=== PATIENT | male | born 1955 | race American Indian/Alaskan Native ===

== ENCOUNTER 2017-02-03 06:03 | Inpatient (IN) | payer OTHER ==
[2017-02-03] MEDS ORDERED: DUONEB *Not for PRN Use IH ONE ×2 (06:25→06:33)
[2017-02-03] MEDS ORDERED: PROVENTIL IH ONE ×2 (06:26→06:31)
[2017-02-03 07:03] LABS: Eosinophils % (Auto) 5.2 % (0.0-4.3); Hematocrit 26.2 % (35.5-45.6); Hemoglobin 8.4 gm/dl (11.8-15.2); Mean Corpuscular HGB Conc 32 % (32-34); Mean Corpuscular Hemoglobin 26 pg (28-32); Mean Corpuscular Volume 81 fl (84-94); Platelet Count 371 K/mm3 (140-440); Red Blood Count 3.22 M/mm3 (3.65-5.03); Red Cell Distribution Width 16.3 % (13.2-15.2); White Blood Count 5.7 K/mm3 (4.5-11.0)
--- NOTE | 2017-02-03 07:09 | Emergency Department Report ---
HPI - General Chief Complaint: Dyspnea/Respdistress Time Seen by Provider: 02/03/17 06:52 - HPI HPI: Room 4 The patient is a 62-year-old male presenting with a chief complaint of shortness of breath. The patient stated for one week he's had progressively worsening shortness of breath in addition to bilateral lower extremity edema. Patient with an occasional cough that is occasionally productive. Patient denies any history of fever, chest pain nausea or vomiting. The patient states he has a history of renal insufficiency and his last creatinine was in the 3s by March 2016. Location: Lungs, lower extremities Duration: One week Quality: Shortness Of breath Severity: Moderate Modifying factors: [see above] Context: [see above] Mode of transportation: [not driving] ED Past Medical Hx - Past Medical History Previous Medical History?: Yes Hx Hypertension: Yes Hx Diabetes: Yes Hx Renal Disease: Yes (renal insufficiency. Creatinine 22 March 2016) - Surgical History Past Surgical History?: No Hx Cholecystectomy: Yes - Family History Family history: no significant - Social History Smoking Status: Never Smoker Substance Use Type: None - Medications Home Medications: Home Medications Medication Instructions Recorded Confirmed Last Taken Type Labetalol HCl 300 mg PO TID 02/03/17 02/03/17 1 Day Ago History ~02/02/17 Sitagliptin Phosphate [Januvia] 50 mg PO DAILY 02/03/17 02/03/17 1 Day Ago History ~02/02/17 50mg Sodium Bicarbonate 650 mg PO TID 02/03/17 02/03/17 1 Day Ago History ~02/02/17 650 ED Review of Systems ROS: Stated complaint: RAYO Other details as noted in HPI Comment: All other systems reviewed and negative Constitutional: denies: chills, fever ENT: denies: ear pain, throat pain Respiratory: cough, shortness of breath Cardiovascular: denies: chest pain, palpitations Endocrine: no symptoms reported Gastrointestinal: denies: abdominal pain, nausea, diarrhea Genitourinary: denies: urgency, dysuria Musculoskeletal: denies: back pain, joint swelling, arthralgia Skin: denies: rash, lesions Neurological: denies: headache, weakness, paresthesias Psychiatric: denies: anxiety, depression Hematological/Lymphatic: denies: easy bleeding, easy bruising Physical Exam - Physical Exam Vital Signs: Vital Signs 02/03/17 02/03/17 06:13 06:27 Pulse Rate 111 H Respiratory 30 H 30 H Rate Blood Pressure 190/115 O2 Sat by Pulse 100 100 Oximetry Physical Exam: GENERAL: The patient is well-developed well-nourished male sitting on stretcher receiving nebulizer not appearing to be in acute distress. [] HEENT: Normocephalic. Atraumatic. Extraocular motions are intact. Patient has moist mucous membranes. NECK: Supple. No meningitic signs are noted. There is no adenopathy noted. CHEST/LUNGS: No wheezing auscultated. No crackles auscultated. Breath sounds equal bilaterally HEART/CARDIOVASCULAR: Regular. There is tachycardia. There is no gallop rub or murmur. ABDOMEN: Abdomen is soft, nontender. Patient has normal bowel sounds. There is no abdominal distention. SKIN: There is no rash. There is 2+ bilateral lower extremity pitting edema. There is no diaphoresis. NEURO: The patient is awake, alert, and oriented. The patient is cooperative. The patient has normal speech MUSCULOSKELETAL:There is no evidence of acute injury. ED Course Vital Signs 02/03/17 02/03/17 06:13 06:27 Pulse Rate 111 H Respiratory 30 H 30 H Rate Blood Pressure 190/115 O2 Sat by Pulse 100 100 Oximetry - Consultations Consultation #1: 02/03/17 07:39 Nephrology paged 02/03/17 07:[address] Fay ED Medical Decision Making - Lab Data Result diagrams: 02/03/17 06:20 02/03/17 06:20 Laboratory Tests 02/03/17 02/03/17 02/03/17 06:20 06:20 06:20 WBC 5.7 RBC 3.22 L Hgb 8.4 L Hct 26.2 L MCV 81 L MCH 26 L MCHC 32 RDW 16.3 H Plt Count 371 Lymph % (Auto) 34.1 [place] % (Auto) 8.4 H Eos % (Auto) 5.2 H Baso % (Auto) 1.0 Lymph # 1.9 [place] # 0.5 Eos # 0.3 Baso # 0.1 Seg Neutrophils % 51.3 Seg Neutrophils # 2.9 Sodium 143 Potassium 5.8 H Chloride 109.5 H Carbon Dioxide 19 L Anion Gap 20 BUN 41 H Creatinine 6.3 H Estimated GFR 11 BUN/Creatinine Ratio 7 Glucose 267 H Calcium 8.1 L Total Creatine Kinase 1113 H CK-MB (CK-2) 15.1 H CK-MB (CK-2) Rel Index 1.3 Troponin T 0.219 H* - EKG Data -: EKG Interpreted by Me EKG shows normal: sinus rhythm Rate: tachycardia (110 bpm) - EKG Data When compared to previous EKG there are: previous EKG unavailable Interpretation: nonspecific ST-T wave arsenio (ST depression infero-laterally. T wave inversions infero-laterally) - Radiology Data Radiology results: image reviewed (chest x-ray) interpreted by me: Chest x-ray-right sided pleural effusion. - Differential Diagnosis CHF, renal failure, ACS, pneumonia Critical care attestation.: If time is entered above; I have spent that time in minutes in the direct care of this critically ill patient, excluding procedure time. ED Disposition Clinical Impression: Shortness of breath, Acute renal failure, Elevated troponin, Volume overload, Rhabdomyolysis, Hyperkalemia Disposition: DC-09 OP ADMIT IP TO THIS HOSP Is pt being admited?: Yes Does the pt Need Aspirin: No Condition: Fair Referrals: LINDSAY THOMPSON MD [Primary Care Provider] - 3-5 Days Time of Disposition: 07:39 (hospitalist paged)
[2017-02-03 07:17] LABS: Calcium 8.1 mg/dL (8.4-10.2)
[2017-02-03 07:18] LABS: Chloride 109.5 mmol/L (98-107); Potassium 5.8 mmol/L (3.6-5.0)
[2017-02-03 07:27] LABS: Creatine Kinase MB 15.1 ng/mL (0.0-4.0)
[2017-02-03] MEDS ORDERED: KIONEX PO ONE (07:34)
[2017-02-03] MEDS ORDERED: D50W (25GM) Syringe IV ONE (08:00)
[2017-02-03] MEDS ORDERED: SODIUM BICARBONATE IV ONE ×2 (08:00→08:39)
[2017-02-03] MEDS ORDERED: CALCIUM GLUCONATE 1,000 MG in NACL 0.9% 100 ML IV ONE (08:30)
[2017-02-03] MEDS ORDERED: D50W (25GM) Vial 50 ML IV ONE (08:38)
--- NOTE | 2017-02-03 09:06 | Consultation ---
History of Present Illness - Reason for Consult Consult date: 02/03/17 acute renal failure, chronic renal failure, hyperkalemia, metabolic acidosis - History of Present Illness The patient is a 62-year-old AAM with medical history significant for Type 2 DM , HTN and CKD stage 4 presented to the ED with one week h/o worsening shortness of breath. He also reports having bilateral lower extremity edema, orthopnea and occasional cough. No prior similar presentation. Denies any h/o CHF or COPD. Inital BP was around 200/110. His creatinine was around 3 in March 2016 and it is 6.3 today with potassium of 5.8. Patient denies any history of fever, nausea, vomiting, diarrhea, rash, dysuria, hematuria, CP, dizziness or syncope. Patient received Kayexalate, IV Calicum, Insulin-Dextrose and Albuterol. Past History Past Medical History: diabetes, hypertension, renal failure Medications and Allergies Allergies Allergy/AdvReac Type Severity Reaction Status Date / Time No Known Allergies Allergy Unverified 02/03/17 06:27 Home Medications Medication Instructions Recorded Confirmed Last Taken Type Labetalol HCl 300 mg PO TID 02/03/17 02/03/17 1 Day Ago History ~02/02/17 Sitagliptin Phosphate [Januvia] 50 mg PO DAILY 02/03/17 02/03/17 1 Day Ago History ~02/02/17 50mg Sodium Bicarbonate 650 mg PO TID 02/03/17 02/03/17 1 Day Ago History ~02/02/17 650 Review of Systems Constitutional: no weight loss, no weight gain, no fever, no chills, no anorexia Ears, nose, mouth and throat: no epistaxis Cardiovascular: orthopnea, edema, shortness of breath, dyspnea on exertion, high blood pressure, leg edema, decreased exercise tolerance, no chest pain, no palpitations, no rapid/irregular heart beat, no syncope, no lightheadedness Respiratory: cough, cough with sputum, shortness of breath, dyspnea on exertion , no hemoptysis, no home oxygen Gastrointestinal: no abdominal pain, no nausea, no vomiting, no diarrhea, no melena, no jaundice Genitourinary Male: no dysuria, no hematuria Rectal: no bleeding Musculoskeletal: no redness of joints, no muscle weakness Integumentary: no rash, no sores, no wounds, no jaundice Neurological: no paralysis, no seizures, no syncope, no change in speech, no change in mentation, no confusion Endocrine: weight change Hematologic/Lymphatic: no easy bleeding Exam - Vital Signs Vital signs: Vital Signs Pulse Resp BP Pulse Ox 111 H 30 H 190/115 100 02/03/17 06:13 02/03/17 06:13 02/03/17 06:13 02/03/17 06:13 - General Appearance General appearance: well-developed, well-nourished, appears stated age, other ( tachypneic on talking) EENT: ATNC, PERRL, mucous membranes moist, hearing intact, vision intact Neck: Present: neck supple, trachea midline, JVD/HJR Respiratory: Rales Heart: regular, S1S2, no murmurs Gastrointestinal: Present: normoactive bowel sounds. Absent: tenderness, distended Integumentary: no rash Neurologic: no focal deficit, no asterixis, CN 3-12 intact Musculoskeletal: Present: other (1+ edema of both LEs noted) Psychiatric: mood/affect appropriate, cooperative Results - Lab Results 02/03/17 06:20 02/03/17 06:20 Most recent lab results Calcium 8.1 mg/dL (8.4-10.2) L 02/03/17 06:20 - Image Kidney/bladder ultrasound: pending Assessment and Plan 1. Acute kidney injury: SHERICE superimposed on CKD stage 4 likely in the setting of Cardio-Renal Syndrome. Urine studies and Renal US ordered. Renal prognosis is guarded. 2. Hyperkalemia: Patient received Kayexalate, Albuterol, IV Calcium and Insulin-Dextrose. IV lasix ordered. Will follow K levels. Patient would need hemodialysis if potassium level remains high. 3. Metabolic acidosis: Monitor. 4. CHF: Volume overload with elevated BNP. 5. Anemia.
--- NOTE | 2017-02-03 10:32 | XRay Report ---
PA and lateral chest: SOB. There is fluid layering along the lower left chest wall blunting the costophrenic angle. There is mild blunting at the lateral right costophrenic angle. The heart is slightly enlarged and there is mild vascular congestion. No pulmonary infiltrates identified. No prior study for comparison. Impressions: Findings of bilateral effusions probably secondary to CHF.
[2017-02-03] MEDS ORDERED: LASIX 80 MG in NACL 0.9% 50 ML IV ONE (12:00)
[2017-02-03] MEDS: NORMODYNE PO SCH ×3 (12:13→21:26)
[2017-02-03] MEDS ORDERED: TYLENOL PO PRN (12:39)
[2017-02-03] MEDS ORDERED: APRESOLINE IV PRN (12:39)
[2017-02-03] MEDS ORDERED: DULCOLAX PR PRN (12:39)
[2017-02-03] MEDS ORDERED: ZOFRAN IV PRN (12:39)
[2017-02-03] MEDS ORDERED: D50W (25GM) Syringe IV PRN (12:39)
--- NOTE | 2017-02-03 13:01 | History and Physical Report ---
History of Present Illness Date of admission: 02/03/17 07:43 Chief complaint: sob History of present illness: 62M with pmh of CKD, htn, who pw Progressive shortness of breath, orthopnea, PND and dyspnea on exertion. Along with lower extremity swelling. Patient said that his creatinine was checked in March and he was about 3, he has chronic kidney disease. 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 denies: smoking Family history: diabetes, hypertension Medications and Allergies Allergies Allergy/AdvReac Type Severity Reaction Status Date / Time No Known Allergies Allergy Unverified 02/03/17 06:27 Home Medications Medication Instructions Recorded Confirmed Last Taken Type Labetalol HCl 300 mg PO TID 02/03/17 02/03/17 1 Day Ago History ~02/02/17 Sitagliptin Phosphate [Januvia] 50 mg PO DAILY 02/03/17 02/03/17 1 Day Ago History ~02/02/17 50mg Sodium Bicarbonate 650 mg PO TID 02/03/17 02/03/17 1 Day Ago History ~02/02/17 650 Active Meds: Active Medications Acetaminophen (Tylenol) 650 mg PO Q4H PRN PRN Reason: Pain MILD(1-3)/Fever >100.5/KUMARI Bisacodyl (Dulcolax) 10 mg [place] QDAY PRN PRN Reason: Constipation unrelieved by MOM Dextrose (D50w (25gm) Syringe) 50 ml IV PRN PRN PRN Reason: Hypoglycemia Furosemide (Lasix) 40 mg IV BID@0600,1800 [facility] Hydralazine HCl (Apresoline) 10 mg IV Q4HR PRN PRN Reason: BP >160/100 Labetalol HCl (Normodyne) 300 mg PO TID [facility] Last Admin: 02/03/17 12:13 Dose: 300 mg Miscellaneous Medication (Labetalol Hcl [Labetalol Hcl]) 300 mg PO TID [facility] Ondansetron HCl (Zofran) 4 mg IV Q8H PRN PRN Reason: N/V unrelieved by Reglan Sodium Bicarbonate (Sodium Bicarbonate) 650 mg PO TID [facility] Review of Systems Constitutional: fatigue Cardiovascular: orthopnea, edema, shortness of breath, dyspnea on exertion, paroxysmal nocturnal dyspnea Respiratory: cough Exam - Constitutional Vitals: Temp Pulse Resp BP Pulse Ox 98.5 F 97 H 18 172/92 100 02/03/17 12:10 02/03/17 12:10 02/03/17 12:10 02/03/17 12:10 02/03/17 12:10 General appearance: Present: no acute distress, well-nourished - EENT Eyes: Present: PERRL ENT: hearing intact, clear oral mucosa - Neck Neck: Present: supple, normal ROM - Respiratory Respiratory effort: normal Respiratory: bilateral: rales - Cardiovascular Heart Sounds: Present: S1 & S2. Absent: rub, click - Extremities Extremities: pulses symmetrical Extremity abnormal: edema (bilateral bipedal) Peripheral Pulses: within normal limits - Abdominal General gastrointestinal: Present: soft, non-tender, non-distended, normal bowel sounds Male genitourinary: Present: normal - Integumentary Integumentary: Present: clear, warm, dry - Musculoskeletal Musculoskeletal: gait normal, strength equal bilaterally - Psychiatric Psychiatric: appropriate mood/affect, intact judgment & insight - Neurologic Neurologic: CNII-XII intact, moves all extremities Results - Labs CBC & Chem 7: 02/04/17 05:10 02/04/17 05:10 Labs: Laboratory Last Values WBC 5.7 K/mm3 (4.5-11.0) 02/03/17 06:20 RBC 3.22 M/mm3 (3.65-5.03) L 02/03/17 06:20 Hgb 8.4 gm/dl (11.8-15.2) L 02/03/17 06:20 Hct 26.2 % (35.5-45.6) L 02/03/17 06:20 MCV 81 fl (84-94) L 02/03/17 06:20 MCH 26 pg (28-32) L 02/03/17 06:20 MCHC 32 % (32-34) 02/03/17 06:20 RDW 16.3 % (13.2-15.2) H 02/03/17 06:20 Plt Count 371 K/mm3 (140-440) 02/03/17 06:20 Lymph % (Auto) 34.1 % (13.4-35.0) 02/03/17 06:20 [place] % (Auto) 8.4 % (0.0-7.3) H 02/03/17 06:20 Eos % (Auto) 5.2 % (0.0-4.3) H 02/03/17 06:20 Baso % (Auto) 1.0 % (0.0-1.8) 02/03/17 06:20 Lymph # 1.9 K/mm3 (1.2-5.4) 02/03/17 06:20 [place] # 0.5 K/mm3 (0.0-0.8) 02/03/17 06:20 Eos # 0.3 K/mm3 (0.0-0.4) 02/03/17 06:20 Baso # 0.1 K/mm3 (0.0-0.1) 02/03/17 06:20 Seg Neutrophils % 51.3 % (40.0-70.0) 02/03/17 06:20 Seg Neutrophils # 2.9 K/mm3 (1.8-7.7) 02/03/17 06:20 Sodium 143 mmol/L (137-145) 02/03/17 06:20 Potassium 5.8 mmol/L (3.6-5.0) H 02/03/17 06:20 Chloride 109.5 mmol/L (98-107) H 02/03/17 06:20 Carbon Dioxide 19 mmol/L (22-30) L 02/03/17 06:20 Anion Gap 20 mmol/L 02/03/17 06:20 BUN 41 mg/dL (9-20) H 02/03/17 06:20 Creatinine 6.3 mg/dL (0.8-1.5) H 02/03/17 06:20 Estimated GFR 11 ml/min 02/03/17 06:20 BUN/Creatinine Ratio 7 % 02/03/17 06:20 Glucose 267 mg/dL (75-100) H 02/03/17 06:20 POC Glucose 104 (70-105) 02/03/17 11:39 Calcium 8.1 mg/dL (8.4-10.2) L 02/03/17 06:20 Total Creatine Kinase 1113 units/L (55-170) H 02/03/17 06:20 CK-MB (CK-2) 15.1 ng/mL (0.0-4.0) H 02/03/17 06:20 CK-MB (CK-2) Rel Index 1.3 (0-4) 02/03/17 06:20 Troponin T 0.219 ng/mL (0.00-0.029) H* 02/03/17 06:20 NT-Pro-B Natriuret Pep 82837 pg/mL (0-900) H 02/03/17 06:20 Triglycerides 96 mg/dL (2-149) 02/03/17 06:20 Cholesterol 182 mg/dL (50-199) 02/03/17 06:20 LDL Cholesterol Direct 113 mg/dL (50-130) 02/03/17 06:20 HDL Cholesterol 50 mg/dL (40-59) 02/03/17 06:20 Cholesterol/HDL Ratio 3.64 % 02/03/17 06:20 - Imaging and Cardiology EKG: image reviewed (no acute ST changes) Chest x-ray: image reviewed (bilateral mild effusions) Assessment and Plan Assessment and plan: 62m with pmh of HTN and CKD, who presents with SOB and LE edema Fluid overload ?CHF vs renal cause concern for cardiorenal syndrome -start IV lasix -cardiology consult and echocardiogram Acute on Chronic Kidney disease -lasix -nephrology input appreciated -avoid nephrotins NIDDM type 2 -hold oral meds, SSI while in house Hyperkalemia -medically treated, will recheck levels -will need HD if it does not improve Elevated troponin -no chest pain, and not cw with acs -trend trop levels, fup cardiology recs DVT ppx -heparin sq
[2017-02-03] MEDS ORDERED: NON-FORMULARY (Labetalol Hcl [Labetalol Hcl] 300 MG) PO SCH (14:00)
--- NOTE | 2017-02-03 14:16 | Ultrasound Report ---
Renal ultrasound: Acute renal failure. Right renal length is 12.4 cm and the left 11.2 cm. The parenchyma of both kidneys is increased in echogenicity. There is a small right renal cyst but no solid mass in either kidney. There is no hydronephrosis nor calculus. Imaging of the urinary bladder is unremarkable. A small amount perinephric fluid is identified over the right kidney and there is are bilateral pleural effusions. Impression: 1. Renal findings consistent with medical renal disease. 2. Bilateral pleural effusions.
[2017-02-03] MEDS: NOVOLOG SUB-Q SCH ×2 (17:08→21:29)
[2017-02-03] MEDS: HEPARIN SUB-Q SCH ×2 (17:55→21:27)
[2017-02-03] MEDS: SODIUM BICARBONATE PO SCH ×2 (17:55→21:26)
[2017-02-03 18:37] LABS: Bilirubin,Urine NEG (Negative); Blood,Urine SM (Negative); Ketones,Urine NEG (Negative); Leukocyte Esterase,Urine NEG (Negative); Mucus,Urine FEW /HPF; Nitrite,Urine NEG (Negative); Urobilinogen,Urine < 2.0 mg/dL (<2.0)
[2017-02-03 18:38] LABS: Protein,Urine >500 mg/dL (Negative)
[2017-02-03] MEDS: LASIX IV SCH (19:27)
--- NOTE | 2017-02-03 22:15 | Consultation ---
History of Present Illness Consult date: 02/03/17 Consult reason: other (shortness of breath) History of present illness: 62M with pmh of CKD, htn, who presented to the hospital with Progressive shortness of breath, orthopnea, PND and dyspnea on exertion, and bilateral lower extremity edema. Past History Past Medical History: diabetes, hypertension, renal failure Past Surgical History: cholecystectomy Social history: no significant social history. denies: smoking Family history: diabetes, hypertension Medications and Allergies Allergies Allergy/AdvReac Type Severity Reaction Status Date / Time No Known Allergies Allergy Unverified 02/03/17 06:27 Home Medications Medication Instructions Recorded Confirmed Last Taken Type Labetalol HCl 300 mg PO TID 02/03/17 02/03/17 1 Day Ago History ~02/02/17 Sitagliptin Phosphate [Januvia] 50 mg PO DAILY 02/03/17 02/03/17 1 Day Ago History ~02/02/17 50mg Sodium Bicarbonate 650 mg PO TID 02/03/17 02/03/17 1 Day Ago History ~02/02/17 650 Active Meds: Active Medications Acetaminophen (Tylenol) 650 mg PO Q4H PRN PRN Reason: Pain MILD(1-3)/Fever >100.5/KUMARI Bisacodyl (Dulcolax) 10 mg [place] QDAY PRN PRN Reason: Constipation unrelieved by MOM Dextrose (D50w (25gm) Syringe) 50 ml IV PRN PRN PRN Reason: Hypoglycemia Furosemide (Lasix) 40 mg IV BID@0600,1800 [facility] Last Admin: 02/03/17 19:27 Dose: 40 mg Heparin Sodium (Porcine) (Heparin) 5,000 unit SUB-Q Q8HR [facility] Last Admin: 02/03/17 21:27 Dose: Not Given Hydralazine HCl (Apresoline) 10 mg IV Q4HR PRN PRN Reason: BP >160/100 Insulin Aspart (Novolog) 0 units SUB-Q ACHS [facility] PRN Reason: Protocol Last Admin: 02/03/17 21:29 Dose: Not Given Labetalol HCl (Normodyne) 300 mg PO TID [facility] Last Admin: 02/03/17 21:26 Dose: Not Given Ondansetron HCl (Zofran) 4 mg IV Q8H PRN PRN Reason: N/V unrelieved by Reglan Sodium Bicarbonate (Sodium Bicarbonate) 650 mg PO TID [facility] Last Admin: 02/03/17 21:26 Dose: Not Given Review of Systems All systems: negative (pertinent positives in HPI) Physical Examination Vital Signs Pulse Ox 100 02/03/17 06:07 General appearance: no acute distress HEENT: Positive: PERRL, EOMI Cardiac: Positive: Reg Rate and Rhythm, S1/S2 Lungs: Positive: clear to auscultation Abdomen: Positive: Soft, Active Bowel Sounds Extremities: Present: edema Results 02/04/17 05:10 02/04/17 05:10 Cardiac Enzymes 02/03/17 Range/Units 06:20 CK-MB (CK-2) 15.1 H (0.0-4.0) ng/mL Lipids 02/03/17 Range/Units 06:20 Triglycerides 96 (2-149) mg/dL Cholesterol 182 (50-199) mg/dL HDL Cholesterol 50 (40-59) mg/dL Cholesterol/HDL Ratio 3.64 % CBC 02/03/17 Range/Units 06:20 WBC 5.7 (4.5-11.0) K/mm3 RBC 3.22 L (3.65-5.03) M/mm3 Hgb 8.4 L (11.8-15.2) gm/dl Hct 26.2 L (35.5-45.6) % Plt Count 371 (140-440) K/mm3 Lymph # 1.9 (1.2-5.4) K/mm3 [place] # 0.5 (0.0-0.8) K/mm3 Eos # 0.3 (0.0-0.4) K/mm3 Baso # 0.1 (0.0-0.1) K/mm3 Comprehensive Metabolic Panel 02/03/17 02/03/17 Range/Units 06:20 13:07 Sodium 143 (137-145) mmol/L Potassium 5.8 H 4.8 (3.6-5.0) mmol/L Chloride 109.5 H (98-107) mmol/L Carbon Dioxide 19 L (22-30) mmol/L BUN 41 H (9-20) mg/dL Creatinine 6.3 H (0.8-1.5) mg/dL Glucose 267 H (75-100) mg/dL Calcium 8.1 L (8.4-10.2) mg/dL Assessment and Plan Fluid overload Acute on Chronic Kidney disease NIDDM type 2 Hyperkalemia Elevated troponin Echo shows normal EF 55-60% with grade I diastolic dysfunction volume overload secondary to renal disease elevated troponin in the setting for renal dysfucntion, though troponin elevation greater than expected Follow serial troponins - ischemic evaluation by stress test versus cath when acute issues resolved Medical therapy with BB, statin, and DAPT.
[2017-02-04] MEDS: HEPARIN SUB-Q SCH ×3 (05:18→21:13)
[2017-02-04] MEDS: LASIX IV SCH ×2 (05:18→17:43)
[2017-02-04 05:56] LABS: Basophils % (Auto) 1.1 % (0.0-1.8); Eosinophils % (Auto) 4.2 % (0.0-4.3); Hematocrit 26.8 % (35.5-45.6); Hemoglobin 8.4 gm/dl (11.8-15.2); Mean Corpuscular HGB Conc 31 % (32-34); Mean Corpuscular Volume 80 fl (84-94); Platelet Count 334 K/mm3 (140-440); Red Blood Count 3.36 M/mm3 (3.65-5.03); Red Cell Distribution Width 16.5 % (13.2-15.2); White Blood Count 5.8 K/mm3 (4.5-11.0)
[2017-02-04 05:57] LABS: Mean Corpuscular Hemoglobin 25 pg (28-32)
[2017-02-04 06:14] LABS: Albumin 2.8 g/dL (3.9-5); Bilirubin,Total 0.2 mg/dL (0.1-1.2); Calcium 8.5 mg/dL (8.4-10.2); Chloride 108.5 mmol/L (98-107); Total Protein 5.7 g/dL (6.3-8.2)
--- NOTE | 2017-02-04 07:20 | Progress Note ---
Assessment and Plan 1. Acute kidney injury: SHERICE superimposed on CKD stage 4 likely in the setting of Cardio-Renal Syndrome. Renal US is essentially normal. UA showed proteinuria. Will protein quantification. Likely diabetic nephropathy. Renal prognosis is guarded. 2. Hyperkalemia: Improved with Kayexalate, Albuterol, IV Calcium and Insulin-Dextrose. 3. Metabolic acidosis: Monitor. 4. CHF: Volume overload with elevated BNP. Continue IV Lasix. 5. Anemia. Subjective Date of service: 02/04/17 Interval history: Patient is feeling better today. Objective - Vital Signs Vital signs: Vital Signs - 12hr 02/03/17 02/03/17 02/03/17 19:29 19:59 23:33 Temperature 98.4 F 97.6 F Pulse Rate 80 83 Respiratory 14 16 Rate Blood Pressure 133/62 150/75 Blood Pressure 136/67 [Left] O2 Sat by Pulse 100 Oximetry 02/04/17 03:44 Temperature 98.6 F Pulse Rate Respiratory 16 Rate Blood Pressure 182/90 Blood Pressure [Left] O2 Sat by Pulse Oximetry - General Appearance General appearance: well-developed, well-nourished, appears stated age, other ( no distress) EENT: ATNC, PERRL, vision intact Neck: supple Respiratory: Present: Rales Cardiology: regular, S1S2, no murmurs Gastrointestinal: normoactive bowel sounds, no tenderness, no distended Integumentary: no rash, warm and dry Neurologic: no focal deficit, no asterixis, alert and oriented x3, CN 3-12 intact Musculoskeletal: other (1+ edema of both LEs) Psychiatric: mood/affect appropriate, cooperative - Lab 02/04/17 05:10 02/04/17 05:10 Most recent lab results Calcium 8.5 mg/dL (8.4-10.2) 02/04/17 05:10 Urine Creatinine 138.0 mg/dL (0.1-20.0) H 02/03/17 Unknown Urine Sodium 80 mmol/L 02/03/17 Unknown
[2017-02-04] MEDS: NOVOLOG SUB-Q SCH ×4 (07:52→22:27)
[2017-02-04] MEDS: NORMODYNE PO SCH ×3 (09:52→21:08)
[2017-02-04] MEDS: BABY ASPIRIN PO SCH (09:53)
--- NOTE | 2017-02-04 10:24 | Progress Note ---
Assessment and Plan Assessment and plan: 62m with pmh of HTN and CKD, who presents with SOB and LE edema acute diastolic HF -continue IV lasix -cardiology consult appreciated -echo shows preserved ef and diastolic Dysfunction Acute on Chronic Kidney disease -lasix -nephrology input appreciated -avoid nephrotins NIDDM type 2 -hold oral meds, SSI while in house Hyperkalemia -medically treated, and resolved Elevated troponin/Type 2 MA -no chest pain, and not cw with acs -most likely Type 2 MA DVT ppx -heparin sq History Interval history: orthopnea is improved, LE edema is improving, no chest pain Hospitalist Physical - Physical exam Narrative exam: General appearance: Present: no acute distress, well-nourished - EENT Eyes: Present: PERRL ENT: hearing intact, clear oral mucosa - Neck Neck: Present: supple, normal ROM - Respiratory Respiratory effort: normal Respiratory: bilateral: rales - Cardiovascular Heart Sounds: Present: S1 & S2. Absent: rub, click - Extremities Extremities: pulses symmetrical Extremity abnormal: edema (bilateral bipedal) Peripheral Pulses: within normal limits - Abdominal General gastrointestinal: Present: soft, non-tender, non-distended, normal bowel sounds Male genitourinary: Present: normal - Integumentary Integumentary: Present: clear, warm, dry - Musculoskeletal Musculoskeletal: gait normal, strength equal bilaterally - Psychiatric Psychiatric: appropriate mood/affect, intact judgment & insight - Neurologic Neurologic: CNII-XII intact, moves all extremities - Constitutional Vitals: Temp Pulse Resp BP Pulse Ox 98.7 F 88 22 160/80 99 02/04/17 07:42 02/04/17 09:52 02/04/17 07:42 02/04/17 09:52 02/04/17 07:42 General appearance: Present: no acute distress Results - Labs CBC & Chem 7: 02/04/17 05:10 02/04/17 05:10 Labs: Laboratory Last Values WBC 5.8 K/mm3 (4.5-11.0) 02/04/17 05:10 RBC 3.36 M/mm3 (3.65-5.03) L 02/04/17 05:10 Hgb 8.4 gm/dl (11.8-15.2) L 02/04/17 05:10 Hct 26.8 % (35.5-45.6) L 02/04/17 05:10 MCV 80 fl (84-94) L 02/04/17 05:10 MCH 25 pg (28-32) L 02/04/17 05:10 MCHC 31 % (32-34) L 02/04/17 05:10 RDW 16.5 % (13.2-15.2) H 02/04/17 05:10 Plt Count 334 K/mm3 (140-440) 02/04/17 05:10 Lymph % (Auto) 21.8 % (13.4-35.0) 02/04/17 05:10 [place] % (Auto) 9.5 % (0.0-7.3) H 02/04/17 05:10 Eos % (Auto) 4.2 % (0.0-4.3) 02/04/17 05:10 Baso % (Auto) 1.1 % (0.0-1.8) 02/04/17 05:10 Lymph # 1.3 K/mm3 (1.2-5.4) 02/04/17 05:10 [place] # 0.5 K/mm3 (0.0-0.8) 02/04/17 05:10 Eos # 0.2 K/mm3 (0.0-0.4) 02/04/17 05:10 Baso # 0.1 K/mm3 (0.0-0.1) 02/04/17 05:10 Seg Neutrophils % 63.4 % (40.0-70.0) 02/04/17 05:10 Seg Neutrophils # 3.6 K/mm3 (1.8-7.7) 02/04/17 05:10 Sodium 144 mmol/L (137-145) 02/04/17 05:10 Potassium 4.0 mmol/L (3.6-5.0) 02/04/17 05:10 Chloride 108.5 mmol/L (98-107) H 02/04/17 05:10 Carbon Dioxide 19 mmol/L (22-30) L 02/04/17 05:10 Anion Gap 21 mmol/L 02/04/17 05:10 BUN 37 mg/dL (9-20) H 02/04/17 05:10 Creatinine 6.2 mg/dL (0.8-1.5) H 02/04/17 05:10 Estimated GFR 11 ml/min 02/04/17 05:10 BUN/Creatinine Ratio 6 % 02/04/17 05:10 Glucose 74 mg/dL (75-100) L 02/04/17 05:10 POC Glucose 80 (70-105) 02/04/17 05:20 Calcium 8.5 mg/dL (8.4-10.2) 02/04/17 05:10 Total Bilirubin 0.20 mg/dL (0.1-1.2) 02/04/17 05:10 AST 20 units/L (5-40) 02/04/17 05:10 ALT 23 units/L (7-56) 02/04/17 05:10 Alkaline Phosphatase 60 units/L (35-129) 02/04/17 05:10 Total Creatine Kinase 668 units/L (55-170) H 02/04/17 05:10 CK-MB (CK-2) 15.1 ng/mL (0.0-4.0) H 02/03/17 06:20 CK-MB (CK-2) Rel Index 1.3 (0-4) 02/03/17 06:20 Troponin T 0.289 ng/mL (0.00-0.029) H* D 02/04/17 08:08 NT-Pro-B Natriuret Pep 99633 pg/mL (0-900) H 02/03/17 06:20 Total Protein 5.7 g/dL (6.3-8.2) L 02/04/17 05:10 Albumin 2.8 g/dL (3.9-5) L 02/04/17 05:10 Albumin/Globulin Ratio 1.0 % 02/04/17 05:10 Triglycerides 96 mg/dL (2-149) 02/03/17 06:20 Cholesterol 182 mg/dL (50-199) 02/03/17 06:20 LDL Cholesterol Direct 113 mg/dL (50-130) 02/03/17 06:20 HDL Cholesterol 50 mg/dL (40-59) 02/03/17 06:20 Cholesterol/HDL Ratio 3.64 % 02/03/17 06:20 Urine Color Yellow (Yellow) 02/03/17 Unknown Urine Turbidity Clear (Clear) 02/03/17 Unknown Urine pH 6.0 (5.0-7.0) 02/03/17 Unknown Ur Specific [place] 1.017 (1.003-1.030) 02/03/17 Unknown Urine Protein >500 mg/dL (Negative) 02/03/17 Unknown Urine Glucose (UA) 50 mg/dL (Negative) 02/03/17 Unknown Urine Ketones Neg mg/dL (Negative) 02/03/17 Unknown Urine Blood Sm (Negative) 02/03/17 Unknown Urine Nitrite Neg (Negative) 02/03/17 Unknown Urine Bilirubin Neg (Negative) 02/03/17 Unknown Urine Urobilinogen < 2.0 mg/dL (<2.0) 02/03/17 Unknown Ur Leukocyte Esterase Neg (Negative) 02/03/17 Unknown Urine WBC (Auto) 2.0 /HPF (0.0-6.0) 02/03/17 Unknown Urine RBC (Auto) 1.0 /HPF (0.0-6.0) 02/03/17 Unknown Urine Mucus Few /HPF 02/03/17 Unknown Urine Creatinine 138.0 mg/dL (0.1-20.0) H 02/03/17 Unknown Urine Sodium 80 mmol/L 02/03/17 Unknown
[2017-02-04] MEDS: PROCARDIA XL PO SCH (11:50)
[2017-02-05 05:09] LABS: Hematocrit 25.9 % (35.5-45.6); Hemoglobin 8.1 gm/dl (11.8-15.2); Mean Corpuscular HGB Conc 32 % (32-34); Mean Corpuscular Volume 79 fl (84-94); Platelet Count 327 K/mm3 (140-440); Red Blood Count 3.29 M/mm3 (3.65-5.03); Red Cell Distribution Width 15.5 % (13.2-15.2); White Blood Count 5.1 K/mm3 (4.5-11.0)
[2017-02-05 05:16] LABS: Mean Corpuscular Hemoglobin 25 pg (28-32)
[2017-02-05 05:32] LABS: Calcium 8.2 mg/dL (8.4-10.2); Chloride 107.8 mmol/L (98-107); Potassium 4.4 mmol/L (3.6-5.0)
[2017-02-05] MEDS: HEPARIN SUB-Q SCH ×3 (06:34→21:53)
[2017-02-05] MEDS: LASIX IV SCH ×2 (06:34→18:25)
--- NOTE | 2017-02-05 08:42 | Progress Note ---
Assessment and Plan Fluid overload Acute on Chronic Kidney disease NIDDM type 2 Hyperkalemia Elevated troponin Echo shows normal EF 55-60% with grade I diastolic dysfunction volume overload secondary to renal disease elevated troponin in the setting for renal dysfucntion, though troponin elevation greater than expected troponins with plateuaed pattern. patient should have ischemic evaluation after acute renal issues resolved. Patient is not currently a candidate for invasive management. Medical therapy with BB, statin, and DAPT. Subjective Date of service: 02/05/17 Interval history: No acute events. Resting comfortably. no chest pain or SOB. Objective Vital Signs Temp Pulse Resp BP Pulse Ox 02/05/17 00:29 98.5 F 77 20 151/79 97 02/04/17 22:00 18 100 02/04/17 21:08 82 149/73 02/04/17 16:03 98.6 F 82 22 129/64 95 02/04/17 15:04 80 160/80 02/04/17 12:28 98.8 F 85 22 136/59 97 02/04/17 10:00 100 02/04/17 09:52 88 160/80 - Physical Examination HEENT: Positive: PERRL, EOMI Neck: Positive: neck supple, trachea midline, JVD/HJR Abdomen: Positive: Soft, Active Bowel Sounds Extremities: Present: edema - Labs and Meds CBC 02/05/17 Range/Units 04:31 WBC 5.1 (4.5-11.0) K/mm3 RBC 3.29 L (3.65-5.03) M/mm3 Hgb 8.1 L (11.8-15.2) gm/dl Hct 25.9 L (35.5-45.6) % Plt Count 327 (140-440) K/mm3 Comprehensive Metabolic Panel 02/05/17 Range/Units 04:31 Sodium 143 (137-145) mmol/L Potassium 4.4 (3.6-5.0) mmol/L Chloride 107.8 H (98-107) mmol/L Carbon Dioxide 22 (22-30) mmol/L BUN 38 H (9-20) mg/dL Creatinine 6.3 H (0.8-1.5) mg/dL Glucose 85 (75-100) mg/dL Calcium 8.2 L (8.4-10.2) mg/dL - Imaging and Cardiology EKG: image reviewed (no acute ST changes)
[2017-02-05] MEDS: NOVOLOG SUB-Q SCH ×4 (08:52→21:56)
--- NOTE | 2017-02-05 09:03 | Progress Note ---
Assessment and Plan 1. Acute kidney injury: SHERICE superimposed on CKD stage 4. Most likely CKD stage 5 now. Renal prognosis is guarded. Previously patient had discussion about dialysis. 2. Proteinuria: Secondary to diabetic nephropathy. 3. Hyperkalemia: Improved. 4. Metabolic acidosis: Improving. 5. CHF: Volume overload with elevated BNP. Continue IV Lasix. 6. Anemia. Subjective Date of service: 02/05/17 Interval history: Patient is feeling better. Objective - Vital Signs Vital signs: Vital Signs - 12hr 02/04/17 02/04/17 02/05/17 21:08 22:00 00:29 Temperature 98.5 F Pulse Rate 82 77 Respiratory 18 20 Rate Blood Pressure 149/73 151/79 O2 Sat by Pulse 100 97 Oximetry - General Appearance General appearance: well-developed, well-nourished, appears stated age, other ( no distress) EENT: ATNC, PERRL, hearing intact, vision intact Neck: supple Respiratory: Present: Clear to Ascultation Cardiology: regular, S1S2, no murmurs Gastrointestinal: normoactive bowel sounds, no tenderness, no distended Integumentary: no rash, warm and dry Neurologic: no focal deficit, no asterixis, CN 3-12 intact Musculoskeletal: other (no edema) Psychiatric: mood/affect appropriate, cooperative - Lab 02/05/17 04:31 02/06/17 07:01 Most recent lab results Calcium 8.2 mg/dL (8.4-10.2) L 02/05/17 04:31 Urine Creatinine 33.3 mg/dL (0.1-20.0) H 02/04/17 00:45 Urine Sodium 80 mmol/L 02/03/17 Unknown Urine Total Protein 160 mg/dL (5-11.8) H 02/04/17 00:45
[2017-02-05] MEDS: PROCARDIA XL PO SCH (09:47)
[2017-02-05] MEDS: BABY ASPIRIN PO SCH (09:47)
[2017-02-05] MEDS: NORMODYNE PO SCH ×3 (09:47→21:54)
--- NOTE | 2017-02-05 13:18 | Progress Note ---
Assessment and Plan Assessment and plan: --Acute on chronic kidney disease; Closely monitor renal function and avoid nephrotoxic medications nephrology following --Type 2 diabetes mellitus; moderate control, Accu-Chek sliding scale coverage and ADA diet and insulin as needed --Nonspecific elevation of troponins In the setting of acute on chronic kidney disease, noncardiac, supportive care Cardiology following, currently not a candidate ischemic evaluation Awaiting improvement of renal status --DVT prophylaxis on heparin Consults noted and appreciated History Interval history: Patient seen and examined No new complaints, feels better Hospitalist Physical - Constitutional Vitals: Temp Pulse Resp BP Pulse Ox 98.4 F 76 20 128/65 98 02/05/17 12:24 02/05/17 12:24 02/05/17 12:24 02/05/17 12:24 02/05/17 12:24 General appearance: Present: no acute distress, well-nourished - EENT Eyes: Present: PERRL, EOM intact - Neck Neck: Present: supple - Respiratory Respiratory effort: normal Respiratory: bilateral: diminished, negative: rales, rhonchi, wheezing - Cardiovascular Rhythm: regular Heart Sounds: Present: S1 & S2 - Extremities Extremities: no ischemia Extremity abnormal: edema - Abdominal General gastrointestinal: soft, non-tender, non-distended, normal bowel sounds - Integumentary Integumentary: Present: clear, warm - Psychiatric Psychiatric: appropriate mood/affect, cooperative - Neurologic Neurologic: CNII-XII intact, moves all extremities Results - Labs CBC & Chem 7: 02/05/17 04:31 02/05/17 04:31 Labs: Laboratory Last Values WBC 5.1 K/mm3 (4.5-11.0) 02/05/17 04:31 RBC 3.29 M/mm3 (3.65-5.03) L 02/05/17 04:31 Hgb 8.1 gm/dl (11.8-15.2) L 02/05/17 04:31 Hct 25.9 % (35.5-45.6) L 02/05/17 04:31 MCV 79 fl (84-94) L 02/05/17 04:31 MCH 25 pg (28-32) L 02/05/17 04:31 MCHC 32 % (32-34) 02/05/17 04:31 RDW 15.5 % (13.2-15.2) H 02/05/17 04:31 Plt Count 327 K/mm3 (140-440) 02/05/17 04:31 Lymph % (Auto) 21.8 % (13.4-35.0) 02/04/17 05:10 [place] % (Auto) 9.5 % (0.0-7.3) H 02/04/17 05:10 Eos % (Auto) 4.2 % (0.0-4.3) 02/04/17 05:10 Baso % (Auto) 1.1 % (0.0-1.8) 02/04/17 05:10 Lymph # 1.3 K/mm3 (1.2-5.4) 02/04/17 05:10 [place] # 0.5 K/mm3 (0.0-0.8) 02/04/17 05:10 Eos # 0.2 K/mm3 (0.0-0.4) 02/04/17 05:10 Baso # 0.1 K/mm3 (0.0-0.1) 02/04/17 05:10 Seg Neutrophils % 63.4 % (40.0-70.0) 02/04/17 05:10 Seg Neutrophils # 3.6 K/mm3 (1.8-7.7) 02/04/17 05:10 Sodium 143 mmol/L (137-145) 02/05/17 04:31 Potassium 4.4 mmol/L (3.6-5.0) 02/05/17 04:31 Chloride 107.8 mmol/L (98-107) H 02/05/17 04:31 Carbon Dioxide 22 mmol/L (22-30) 02/05/17 04:31 Anion Gap 18 mmol/L 02/05/17 04:31 BUN 38 mg/dL (9-20) H 02/05/17 04:31 Creatinine 6.3 mg/dL (0.8-1.5) H 02/05/17 04:31 Estimated GFR 11 ml/min 02/05/17 04:31 BUN/Creatinine Ratio 6 % 02/05/17 04:31 Glucose 85 mg/dL (75-100) 02/05/17 04:31 POC Glucose 96 (70-105) 02/05/17 12:27 Calcium 8.2 mg/dL (8.4-10.2) L 02/05/17 04:31 Total Bilirubin 0.20 mg/dL (0.1-1.2) 02/04/17 05:10 AST 20 units/L (5-40) 02/04/17 05:10 ALT 23 units/L (7-56) 02/04/17 05:10 Alkaline Phosphatase 60 units/L (35-129) 02/04/17 05:10 Total Creatine Kinase 631 units/L (55-170) H 02/05/17 04:31 CK-MB (CK-2) 15.1 ng/mL (0.0-4.0) H 02/03/17 06:20 CK-MB (CK-2) Rel Index 1.3 (0-4) 02/03/17 06:20 Troponin T 0.299 ng/mL (0.00-0.029) H* 02/04/17 15:17 NT-Pro-B Natriuret Pep 75372 pg/mL (0-900) H 02/03/17 06:20 Total Protein 5.7 g/dL (6.3-8.2) L 02/04/17 05:10 Albumin 2.8 g/dL (3.9-5) L 02/04/17 05:10 Albumin/Globulin Ratio 1.0 % 02/04/17 05:10 Triglycerides 96 mg/dL (2-149) 02/03/17 06:20 Cholesterol 182 mg/dL (50-199) 02/03/17 06:20 LDL Cholesterol Direct 113 mg/dL (50-130) 02/03/17 06:20 HDL Cholesterol 50 mg/dL (40-59) 02/03/17 06:20 Cholesterol/HDL Ratio 3.64 % 02/03/17 06:20 Urine Color Yellow (Yellow) 02/03/17 Unknown Urine Turbidity Clear (Clear) 02/03/17 Unknown Urine pH 6.0 (5.0-7.0) 02/03/17 Unknown Ur Specific [place] 1.017 (1.003-1.030) 02/03/17 Unknown Urine Protein >500 mg/dL (Negative) 02/03/17 Unknown Urine Glucose (UA) 50 mg/dL (Negative) 02/03/17 Unknown Urine Ketones Neg mg/dL (Negative) 02/03/17 Unknown Urine Blood Sm (Negative) 02/03/17 Unknown Urine Nitrite Neg (Negative) 02/03/17 Unknown Urine Bilirubin Neg (Negative) 02/03/17 Unknown Urine Urobilinogen < 2.0 mg/dL (<2.0) 02/03/17 Unknown Ur Leukocyte Esterase Neg (Negative) 02/03/17 Unknown Urine WBC (Auto) 2.0 /HPF (0.0-6.0) 02/03/17 Unknown Urine RBC (Auto) 1.0 /HPF (0.0-6.0) 02/03/17 Unknown Urine Mucus Few /HPF 02/03/17 Unknown Urine Creatinine 33.3 mg/dL (0.1-20.0) H 02/04/17 00:45 Protein/Creatinin Ratio 4.80 02/04/17 00:45 Urine Sodium 80 mmol/L 02/03/17 Unknown Urine Total Protein 160 mg/dL (5-11.8) H 02/04/17 00:45
[2017-02-06] MEDS: LASIX IV SCH (06:13)
[2017-02-06] MEDS: HEPARIN SUB-Q SCH ×2 (06:13→16:08)
[2017-02-06 07:44] LABS: Calcium 8.1 mg/dL (8.4-10.2); Chloride 106.3 mmol/L (98-107); Phosphorous 4.6 mg/dL (2.5-4.5)
[2017-02-06] MEDS: NOVOLOG SUB-Q SCH ×2 (08:41→12:52)
[2017-02-06] MEDS: PROCARDIA XL PO SCH (09:32)
[2017-02-06] MEDS: BABY ASPIRIN PO SCH (09:33)
[2017-02-06] MEDS: NORMODYNE PO SCH ×2 (09:34→16:09)
[2017-02-06] MEDS ORDERED: ROCALTROL PO SCH (10:00)
--- NOTE | 2017-02-06 11:08 | Query- Renal Failure ---
Dear Date:__02/06/2017 Fermentation Scientist/CDS:__Luann Phone#:__[phone] Exercise your independent professional judgment when responding to query. Questions asked do not imply a particular answer is desired or expected. We greatly appreciate your clarification on this issue. Clinical Documentation States: 62 year old male was admitted on 02/03/2017 for SOB. The Hospitalist (Dr. Le) progress note on 02/05/2017 states "Assessment and plan: --Acute on chronic kidney disease; Closely monitor renal function and avoid nephrotoxic medications nephrology following." The Nephrology (Sumeet) progress note on 02/04/2017 states "1. Acute kidney injury: SHERICE superimposed on CKD stage 4 likely in the setting of Cardio-Renal Syndrome. " Clinical Findings Show: Creatinine: 6.3 Please clarify if you mean: Acute Renal Failure with or due to: [ ] Tubular Necrosis [ ] Medullary Necrosis [ ] Vasomotor Nephropathy [ ] Shock Kidney [ ] Tubular Nephrosis [ ] Renal Tubular Stasis [ ] Cortical Necrosis [ ] Acute Renal Failure (unspecified) [ ] Lower Tubular Nephrosis [ ] Other: [ ] Not Applicable Present on Admission: [ ] Yes (Y) [ ] Clinically undeterminable (W) [ ] No (N) Please also document response in your Progress Notes and/or Discharge Summary and indicate if the condition was present on admission. MTDD
--- NOTE | 2017-02-06 12:36 | Progress Note ---
Assessment and Plan Volume overload Acute on chronic renal failure Anemia Hypertension Elevated troponin likely in the setting of renal disease. Normal left ventricular systolic function, EF 55-60% on echocardiogram. Subjective Date of service: 02/06/17 Interval history: Patient denies chest pain and shortness of breath. Objective Vital Signs Temp Pulse Pulse Resp BP Pulse Ox 02/06/17 09:34 154/78 02/06/17 07:42 98.3 F 76 20 154/78 98 02/05/17 23:56 98.3 F 79 18 117/54 99 02/05/17 22:00 78 18 02/05/17 21:54 76 130/64 02/05/17 15:07 98.5 F 84 22 135/73 97 02/05/17 13:23 130/78 - Physical Examination General: No Apparent Distress HEENT: Positive: PERRL Cardiac: Positive: Reg Rate and Rhythm Lungs: Positive: Decreased Breath Sounds Neuro: Positive: Grossly Intact Extremities: Present: edema - Labs and Meds Comprehensive Metabolic Panel 02/06/17 Range/Units 07:01 Sodium 143 (137-145) mmol/L Potassium 4.0 (3.6-5.0) mmol/L Chloride 106.3 (98-107) mmol/L Carbon Dioxide 22 (22-30) mmol/L BUN 39 H (9-20) mg/dL Creatinine 6.3 H (0.8-1.5) mg/dL Glucose 98 (75-100) mg/dL Calcium 8.1 L (8.4-10.2) mg/dL - Imaging and Cardiology EKG: image reviewed (no acute ST changes)
--- NOTE | 2017-02-06 15:05 | Progress Note ---
Assessment and Plan 1. CKD stage 5: Likely the renal function has progressed to stage 5. No uremic symptoms or signs. Renal prognosis is guarded. Had a detailed discussion with patient and his regarding treatment options for Stage 5 / ESRD and different dialysis modalities. He wants to think about it and let me know next week. Agreed to see me in the office next week. 2. Proteinuria: Secondary to diabetic nephropathy. 3. Hyperkalemia: Improved. 4. Metabolic acidosis: Improving. 5. Volume overload: Improved with IV Lasix. Continue PO Lasix at home. 6. Anemia: Epogen. Subjective Date of service: 02/06/17 Interval history: Patient is feeling better. Objective - Vital Signs Vital signs: Vital Signs - 12hr 02/06/17 02/06/17 07:42 09:34 Temperature 98.3 F Pulse Rate 76 Respiratory 20 Rate Blood Pressure 154/78 154/78 O2 Sat by Pulse 98 Oximetry - General Appearance General appearance: well-developed, well-nourished, appears stated age, other ( no distress) EENT: ATNC, PERRL, hearing intact, vision intact Neck: supple Respiratory: Present: Clear to Ascultation Cardiology: regular, S1S2, no murmurs Gastrointestinal: normoactive bowel sounds, no tenderness, no distended Integumentary: no rash, warm and dry Neurologic: no focal deficit, no asterixis, CN 3-12 intact Musculoskeletal: other (no edema) Psychiatric: mood/affect appropriate, cooperative - Lab 02/05/17 04:31 02/06/17 07:01 Most recent lab results Calcium 8.1 mg/dL (8.4-10.2) L 02/06/17 07:01 Phosphorus 4.60 mg/dL (2.5-4.5) H 02/06/17 07:01 Urine Creatinine 33.3 mg/dL (0.1-20.0) H 02/04/17 00:45 Urine Sodium 80 mmol/L 02/03/17 Unknown Urine Total Protein 160 mg/dL (5-11.8) H 02/04/17 00:45
--- NOTE | 2017-02-06 15:05 | Discharge Summary ---
Providers - Providers Date of Admission: 02/03/17 07:43 Date of discharge: 02/06/17 Attending physician: KUMAR BERNAL 02/03/17 07:54 Consult to Physician [CONS] Urgent Consulting Provider: EVELIA GREER Reason For Exam: acute renal failure Place consult to:: phone Notified:: y 02/03/17 12:39 Consult to Physician [CONS] Routine Consulting Provider: YEFRI HESTER Reason For Exam: chf Place consult to:: dr. hester Notified:: overhead page Was contact made?: Yes If yes, spoke with:: chay Time called:: 16:26 Primary care physician: LINDSAY THOMPSON Hospitalization Condition: Fair Disposition: DC-01 TO HOME OR SELFCARE Core Measure Documentation - Palliative Care Palliative Care/ Comfort Measures: Not Applicable - Core Measures Any of the following diagnoses?: none Exam - Constitutional Vitals: Temp Pulse Resp BP Pulse Ox 98.3 F 76 20 154/78 98 02/06/17 07:42 02/06/17 07:42 02/06/17 07:42 02/06/17 09:34 02/06/17 07:42 General appearance: Present: no acute distress, well-nourished - EENT Eyes: Present: PERRL, EOM intact - Neck Neck: Present: supple, normal ROM - Respiratory Respiratory effort: normal Respiratory: negative: rales, rhonchi, wheezing - Cardiovascular Rhythm: regular Heart Sounds: Present: S1 & S2 - Extremities Extremities: no ischemia, No edema Peripheral Pulses: within normal limits - Abdominal General gastrointestinal: Present: soft, non-tender, non-distended, normal bowel sounds - Integumentary Integumentary: Present: clear, warm - Musculoskeletal Musculoskeletal: strength equal bilaterally - Psychiatric Psychiatric: appropriate mood/affect, cooperative - Neurologic Neurologic: CNII-XII intact, moves all extremities Plan Activity: no restrictions Diet: diabetic, renal Additional Instructions: Strongly advised to comply with medications, diet, follow-up visits. advised to see mechanical system technician per schedule Follow up with: LINDSAY THOMPSON MD [Primary Care Provider] - 3-5 Days EVELIA GREER MD [Staff Physician] - 7 Days ZANE JHA MD [Staff Physician] - 7 Days Prescriptions: Calcitriol [Rocaltrol] 0.25 mcg PO QDAY #30 capsule Furosemide [Lasix TAB] 40 mg PO DAILY #30 tablet NIFEdipine XL [Procardia Xl] 60 mg PO QDAY #30 tablet
[2017-02-06] MEDS ORDERED: PROCRIT SUB-Q ONE (16:00)
[2017-02-06 16:10] VITALS: BP 129/78
[2017-02-06] MEDS ORDERED: LASIX PO SCH (18:00)
[2017-02-08 20:25] LABS: Albumin 2.4 g/dL (3.8-4.8); Gamma Globulin 0.7 g/dL (0.8-1.7)
== END 2017-02-06 16:25 | disposition home or self-care (01) | DRG 682 ==
LOC: ED 06:03 → 3A 07:43
PROVIDERS: ADMIT Internal Medicine; ATTEND Internal Medicine
DX: N17.9 Acute kidney failure, unspecified (principal); I50.31 Acute diastolic (congestive) heart failure; E87.2 Acidosis; M62.82 Rhabdomyolysis; I13.2 Hypertensive heart and chronic kidney disease with heart failure and with stage 5 chronic kidney disease, or end stage renal disease; N18.5 Chronic kidney disease, stage 5; E87.5 Hyperkalemia; E87.70 Fluid overload, unspecified; E11.21 Type 2 diabetes mellitus with diabetic nephropathy; E11.22 Type 2 diabetes mellitus with diabetic chronic kidney disease; D64.9 Anemia, unspecified; R80.9 Proteinuria, unspecified; Z90.49 Acquired absence of other specified parts of digestive tract; Z79.899 Other long term (current) drug therapy; Z82.49 Family history of ischemic heart disease and other diseases of the circulatory system; Z83.3 Family history of diabetes mellitus
CPT/HCPCS: 36415; 71020; 76770; 80048; 80053; 80061; 81001; 82550; 82553; 82570; 82962; 83880; 83970; 84100; 84132; 84156; 84165; 84300; 84484; 85025; 85027; 87040; 93005; 93010; 93306; 96374; 96375; 99285; A9270-GY; J0610; J1644; J1815; J1940

== ENCOUNTER 2020-07-08 18:50 | Emergency (ER) | payer MEDICARE, OTHER ==
--- NOTE | 2020-07-08 19:30 | Emergency Department Report ---
ED Syncope HPI - General Stated Complaint: FAINTING Time Seen by Provider: 07/08/20 19:18 Source: patient, EMS - History of Present Illness Initial Comments: Patient is 65 years old male with history of end-stage renal disease on hemodialysis, hypertension and diabetes. Patient brought to the emergency room from his work area after he had 1 episode of syncope. Patient stated that he finished dialysis approximately 2 hours before this happened. Patient stated that he had history of syncopal episode after dialysis. Patient denied any head injury. No loss of consciousness. Patient also denied any chest pain or shortness of breath. Patient stated that he is back to normal immediately. Timing/Prior Episodes: single episode today, remote history Precipitating Factors: Positive: none Context: standing Loss of Consciousness: no loss of consciousness Current Symptoms: back to normal - Related Data Allergies/Adverse Reactions: Allergies No Known Allergies Allergy (Unverified 02/03/17 06:27) Home Medications: Ambulatory Orders Labetalol HCl 300 mg PO TID 02/03/17 Sitagliptin Phosphate [Januvia] 50 mg PO DAILY 02/03/17 Sodium Bicarbonate 650 mg PO TID 02/03/17 Aspirin [Aspirin BABY CHEW TAB] 81 mg PO QDAY tab.chew 02/06/17 Furosemide [Lasix TAB] 40 mg PO DAILY #30 tablet 02/06/17 NIFEdipine XL [Procardia Xl] 60 mg PO QDAY #30 tablet 02/06/17 calcitrioL [Rocaltrol] 0.25 mcg PO QDAY #30 capsule 02/06/17 ED Review of Systems ROS: Stated complaint: FAINTING Other details as noted in HPI Comment: All other systems reviewed and negative Constitutional: denies: chills, fever Respiratory: denies: cough, shortness of breath, SOB with exertion, SOB at rest, wheezing Cardiovascular: denies: chest pain, palpitations Gastrointestinal: denies: abdominal pain, nausea, vomiting Musculoskeletal: denies: back pain Neurological: denies: headache, weakness, numbness, paresthesias, confusion, abnormal gait ED Past Medical Hx - Past Medical History Hx Hypertension: Yes Hx Diabetes: Yes Hx Renal Disease: Yes (renal insufficiency. Creatinine 22 March 2016) - Surgical History Hx Cholecystectomy: Yes - Social History Smoking Status: Never Smoker - Medications Home Medications: Home Medications Medication Instructions Recorded Confirmed Last Taken Type Labetalol HCl 300 mg PO TID 02/03/17 02/03/17 1 Day Ago History ~02/02/17 Sitagliptin Phosphate [Januvia] 50 mg PO DAILY 02/03/17 02/03/17 1 Day Ago History ~02/02/17 50 mg Sodium Bicarbonate 650 mg PO TID 02/03/17 02/03/17 1 Day Ago History ~02/02/17 650 Aspirin [Aspirin BABY CHEW TAB] 81 mg PO QDAY tab.chew 02/06/17 Unknown Rx Furosemide [Lasix TAB] 40 mg PO DAILY #30 tablet 02/06/17 Unknown Rx NIFEdipine XL [Procardia Xl] 60 mg PO QDAY #30 tablet 02/06/17 Unknown Rx calcitrioL [Rocaltrol] 0.25 mcg PO QDAY #30 capsule 02/06/17 Unknown Rx ED Physical Exam - General General appearance: alert, in no apparent distress - Head Head exam: Present: atraumatic, normocephalic, normal inspection - Eye Eye exam: Present: normal appearance, PERRL - ENT ENT exam: Present: normal exam, normal orophraynx, mucous membranes moist - Neck Neck exam: Present: normal inspection, full ROM. Absent: tenderness, meningismus - Respiratory Respiratory exam: Present: normal lung sounds bilaterally - Cardiovascular Cardiovascular Exam: Present: regular rate, normal rhythm, normal heart sounds - GI/Abdominal GI/Abdominal exam: Present: soft, normal bowel sounds. Absent: distended, tenderness, guarding, rebound, rigid, organomegaly, mass, bruit, pulsatile mass, hernia - Extremities Exam Extremities exam: Present: normal inspection, full ROM, normal capillary refill. Absent: tenderness - Back Exam Back exam: Present: normal inspection, full ROM. Absent: CVA tenderness (R), CVA tenderness (L) - Neurological Exam Neurological exam: Present: alert, oriented X3, CN II-XII intact - Psychiatric Psychiatric exam: Present: normal mood - Skin Skin exam: Present: warm, intact, normal color ED Course Vital Signs 07/08/20 07/08/20 07/08/20 19:45 19:46 20:00 Temperature 98.4 F Pulse Rate 75 77 76 Respiratory 23 13 16 Rate Blood Pressure 146/68 151/72 Blood Pressure 146/68 [Left] O2 Sat by Pulse 95 99 94 Oximetry 07/08/20 07/08/20 07/08/20 20:15 20:30 20:45 Temperature Pulse Rate 76 81 77 Respiratory 18 20 17 Rate Blood Pressure 161/75 159/76 164/74 Blood Pressure [Left] O2 Sat by Pulse 99 100 100 Oximetry 07/08/20 21:00 Temperature Pulse Rate 76 Respiratory 17 Rate Blood Pressure 155/71 Blood Pressure [Left] O2 Sat by Pulse 77 L Oximetry ED Medical Decision Making - Lab Data Result diagrams: 07/08/20 19:41 07/08/20 19:41 - EKG Data -: EKG Interpreted by Me EKG shows normal: sinus rhythm Rate: normal - EKG Data Interpretation: no acute changes - Medical Decision Making Patient is 65 years old male with history of end-stage renal disease on hemodialysis, hypertension and diabetes. Patient brought to the emergency room from his work area after he had 1 episode of syncope. Patient stated that he finished dialysis approximately 2 hours before this happened. Patient stated that he had history of syncopal episode after dialysis. Patient denied any head injury. No loss of consciousness. Patient also denied any chest pain or short ness of breath. Patient stated that he is back to normal immediately. Patient remained stable in the ER. Patient stated that he did not eat since this morning and he think this is a cause for his syncope. Patient served a meal tray. Patient denying any symptoms. Labs reviewed and is unremarkable except for elevated creatinine which is chronic. Patient advised to follow-up with his primary care physician in the next 2 to 3days the ER if he develop any new symptoms. Critical care attestation.: If time is entered above; I have spent that time in minutes in the direct care of this critically ill patient, excluding procedure time. ED Disposition Clinical Impression: Syncope Disposition: DC-01 TO HOME OR SELFCARE Is pt being admited?: No Condition: Stable Instructions: Syncope (ED), Syncope Referrals: PRIMARY CARE, [Primary Care Provider] - 3-5 Days
[2020-07-08 20:05] LABS: Basophils # (Auto) 0.1 K/mm3 (0.0-0.1); Eosinophils # (Auto) 0.2 K/mm3 (0.0-0.4); Eosinophils % (Auto) 2.7 % (0.0-4.3); Hematocrit 38.4 % (35.5-45.6); Hemoglobin 12.7 gm/dl (11.8-15.2); Lymphocytes # (Auto) 0.8 K/mm3 (1.2-5.4); Lymphocytes % (Auto) 12.5 % (13.4-35.0); Mean Corpuscular HGB Conc 33 % (32-34); Mean Corpuscular Volume 95 fl (84-94); Monocytes # (Auto) 0.6 K/mm3 (0.0-0.8); Platelet Count 202 K/mm3 (140-440); Red Blood Count 4.03 M/mm3 (3.65-5.03); Red Cell Distribution Width 16.8 % (13.2-15.2)
[2020-07-08 20:14] LABS: Calcium 9.8 mg/dL (8.4-10.2)
[2020-07-08 21:44] VITALS: BP 166/82
--- NOTE | 2020-07-09 09:38 | Electrocardiograph Report ---
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
== END 2020-07-08 21:35 | disposition home or self-care (01) ==
LOC: ED 18:50
DX: R55 Syncope and collapse (principal); I12.0 Hypertensive chronic kidney disease with stage 5 chronic kidney disease or end stage renal disease; N18.6 End stage renal disease; E11.22 Type 2 diabetes mellitus with diabetic chronic kidney disease; Z90.49 Acquired absence of other specified parts of digestive tract; Z79.899 Other long term (current) drug therapy; Z99.2 Dependence on renal dialysis
CPT/HCPCS: 36415; 80048; 85025; 93005